=== PATIENT | female | born 1995 | race Caucasian/White ===

== ENCOUNTER 2017-06-05 18:14 | Emergency (ER) | payer BC ==
[2017-06-05] MEDS ORDERED: Ketorolac 30 MG/ML SDV IVPUSH ONE (18:48)
[2017-06-05] MEDS ORDERED: Lactated Ringers 1,000 ML IV ONE (18:48)
--- NOTE | 2017-06-05 19:34 | EDM.PDOC ---
ED HPI GENERAL MEDICAL PROBLEM - General Chief Complaint: Fever Stated Complaint: FEVER/BODY ACHES Time Seen by Provider: 06/05/17 18:34 Source of Information: Reports: Patient History Limitations: Reports: No Limitations - History of Present Illness INITIAL COMMENTS - FREE TEXT/NARRATIVE: 22-year-old female presents for evaluation and treatment of right shoulder pain , fevers, chills and malaise. Patient reports 2 days ago she had a pneumonia shot in her right shoulder and a tetanus shot in the left shoulder. She states that she is now developed severe pain in the right arm and is barely move her right arm. She states that initially she felt tired and did not feel well. Reports today she had a temperature of 102.8 at home. She took 1 g of Tylenol at 7am and at noon. She decided to go to the walk-in where her temperature was 101.5. She was sent over to us for further management. Patient reports when the shoulder is at rest the pain as a 2 out of 10. Reports that movement makes the pain significantly worse. Patient states that she receives the pneumonia vaccine at urging of her PCP and she frequently becomes sick. 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 Patient reports symptoms of severe right shoulder pain, fatigue, malaise, fevers , chills, back pain, neck pain, bilateral thigh pain, decreased appetite, a tickle in the back of her throat and hard time breathing. Patient denies any chest pain, nausea, vomiting, abdominal pain or diarrhea. She denies any recent travel. Immunizations are up-to-date. Previous abdominal surgeries including cholecystectomy. 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 Right Shoulder Pain Score (Numeric/FACES): 7 - Related Data Allergies Allergy/AdvReac Type Severity Reaction Status Date / Time azithromycin Allergy Nausea Verified 06/05/17 19:00 [From Zithromax Z-Eleazar] latex Allergy Pain Verified 06/05/17 19:00 Past Medical History Respiratory History: Reports: Asthma Gastrointestinal History: Reports: Irritable Bowel Syndrome BAND EDGER History: Reports: Other (See Below) Other OB/BYN History: ruptured ovarian cyst Musculoskeletal History: Reports: Fracture Psychiatric History: Reports: Anxiety - Past Surgical History HEENT Surgical History: Reports: Adenoidectomy, Myringotomy w Tube(s), Tonsillectomy GI Surgical History: Reports: Cholecystectomy Social & Family History - Family History Family Medical History: Noncontributory - Tobacco Use Smoking Status *Q: Never Smoker - Recreational Drug Use Recreational Drug Use: No ED ROS GENERAL - Review of Systems Review Of Systems: See Below Constitutional: Reports: Fever, Chills, Malaise, Decreased Appetite HEENT: Reports: Throat Pain (reports a "tickle" in the back of her throat) Respiratory: Reports: Shortness of Breath, Cough Cardiovascular: Denies: Chest Pain GI/Abdominal: Denies: Abdominal Pain, Nausea, Vomiting : Denies: Dysuria Musculoskeletal: Reports: Neck Pain, Arm Pain (right shuolder causing the worst pain), Back Pain, Leg Pain (reports pain to the bilteral thighs) Neurological: Reports: Headache ED EXAM, GENERAL - Physical Exam Exam: See Below Exam Limited By: No Limitations General Appearance: Alert, WD/WN, No Apparent Distress Ears: Normal External Exam, Normal Canal, Hearing Grossly Normal Nose: Normal Inspection Throat/Mouth: Normal Inspection, Normal Lips, Normal Voice, No Airway Compromise , Other (tonsils absent) Neck: Normal Inspection Respiratory/Chest: No Respiratory Distress, Lungs Clear, Normal Breath Sounds Cardiovascular: No Murmur, Tachycardia GI/Abdominal: Normal Bowel Sounds, Soft, Non-Tender Extremities: Limited Range of Motion (right shoulder pain with ROM), Other ( right proximal arm very tender to palpation and swollen; no increased warmth or erythema). No: Increased Warmth, Redness Neurological: Alert, Oriented, Normal Cognition Psychiatric: Normal Affect, Normal Mood Skin Exam: Diaphoretic, Erythema (cheeks are flushed), Increased Warmth Course - Vital Signs Last Recorded V/S: Last Vital Signs Temp 36.8 C 06/06/17 00:10 Pulse 122 H 06/06/17 00:10 Resp 18 06/06/17 00:10 BP 121/58 L 06/06/17 00:10 Pulse Ox 100 06/06/17 00:10 - Orders/Labs/Meds Orders: Active Orders 24 hr Category Date Time Status CULTURE BLOOD [BC] Stat Lab 06/05/17 19:20 Results CULTURE BLOOD [BC] Stat Lab 06/05/17 19:30 Results CULTURE STREP A CONFIRMATION [] Stat Lab 06/05/17 19:10 Results STREP SCRN A RAPID W CULT CONF [] Stat Lab 06/05/17 19:10 Results Labs: Laboratory Tests 06/05/17 06/05/17 06/05/17 Range/Units 18:48 19:00 19:00 WBC 17.52 H (3.98-10.04) K/mm3 RBC 4.26 (3.98-5.22) M/mm3 Hgb 12.7 (11.2-15.7) gm/L Hct 37.3 (34.1-44.9) % MCV 87.6 (79.4-94.8) fl MCH 29.8 (25.6-32.2) pg MCHC 34.0 (32.2-35.5) g/dl RDW Std Deviation 39.7 (36.4-46.3) fL Plt Count 189 (182-369) K/mm3 MPV 10.4 (9.4-12.3) fl Neutrophils % (Manual) 80 H (40-60) % Band Neutrophils % 0 (0-10) % Lymphocytes % (Manual) 13 L (20-40) % Atypical Lymphs % 0 % Monocytes % (Manual) 7 (2-10) % Eosinophils % (Manual) 0 L (0.7-5.8) % Basophils % (Manual) 0 L (0.1-1.2) Toxic Granulation 2+ moderate Platelet Estimate Adequate Plt Morphology Comment Normal RBC Morph Comment Normal Sodium 135 L (136-145) mEq/L Potassium 3.5 (3.5-5.1) mEq/L Chloride 98 (98-107) mEq/L Carbon Dioxide 23 (21-32) mEq/L Anion Gap 17.5 H (5-15) BUN 10 (7-18) mg/dL Creatinine 0.8 (0.55-1.02) mg/dL Est Cr Clr Drug Dosing 93.64 mL/min Estimated GFR (MDRD) > 60 (>60) mL/min BUN/Creatinine Ratio 12.5 L (14-18) Glucose 91 (74-106) mg/dL Lactic Acid (0.4-2.0) mmol/L Calcium 8.8 (8.5-10.1) mg/dL Total Bilirubin 1.2 H (0.2-1.0) mg/dL GGT (5-55) U/L AST 68 H (15-37) U/L ALT 85 H (14-59) U/L Alkaline Phosphatase 104 (46-116) U/L Creatine Kinase 57 (26-192) U/L C-Reactive Protein 4.5 H* (<1.0) mg/dL Total Protein 7.7 (6.4-8.2) g/dl Albumin 3.6 (3.4-5.0) g/dl Globulin 4.1 gm/dL Albumin/Globulin Ratio 0.9 L (1-2) Lipase (73-393) U/L Urine Color Yellow (Yellow) Urine Appearance Clear (Clear) Urine pH 6.0 (5.0-8.0) Ur Specific Homer 1.010 (1.005-1.030) Urine Protein Negative (Negative) Urine Glucose (UA) Negative (Negative) Urine Ketones 2+ H (Negative) Urine Occult Blood Trace-intact H (Negative) Urine Nitrite Negative (Negative) Urine Bilirubin Negative (Negative) Urine Urobilinogen 0.2 (0.2-1.0) Ur Leukocyte Esterase Negative (Negative) Urine RBC 0-5 (0-5) /hpf Urine WBC 0-5 (0-5) /hpf Ur Epithelial Cells 0-5 (0-5) /hpf Urine Bacteria Few (FEW) /hpf Urine Mucus Not seen (FEW) /hpf Urine HCG, Qual (NEGATIVE) Monoscreen (NEGATIVE) 06/05/17 06/05/17 06/05/17 Range/Units 19:00 19:00 19:32 WBC (3.98-10.04) K/mm3 RBC (3.98-5.22) M/mm3 Hgb (11.2-15.7) gm/L Hct (34.1-44.9) % MCV (79.4-94.8) fl MCH (25.6-32.2) pg MCHC (32.2-35.5) g/dl RDW Std Deviation (36.4-46.3) fL Plt Count (182-369) K/mm3 MPV (9.4-12.3) fl Neutrophils % (Manual) (40-60) % Band Neutrophils % (0-10) % Lymphocytes % (Manual) (20-40) % Atypical Lymphs % % Monocytes % (Manual) (2-10) % Eosinophils % (Manual) (0.7-5.8) % Basophils % (Manual) (0.1-1.2) Toxic Granulation Platelet Estimate Plt Morphology Comment RBC Morph Comment Sodium (136-145) mEq/L Potassium (3.5-5.1) mEq/L Chloride (98-107) mEq/L Carbon Dioxide (21-32) mEq/L Anion Gap (5-15) BUN (7-18) mg/dL Creatinine (0.55-1.02) mg/dL Est Cr Clr Drug Dosing mL/min Estimated GFR (MDRD) (>60) mL/min BUN/Creatinine Ratio (14-18) Glucose (74-106) mg/dL Lactic Acid 0.7 (0.4-2.0) mmol/L Calcium (8.5-10.1) mg/dL Total Bilirubin (0.2-1.0) mg/dL GGT (5-55) U/L AST (15-37) U/L ALT (14-59) U/L Alkaline Phosphatase (46-116) U/L Creatine Kinase (26-192) U/L C-Reactive Protein (<1.0) mg/dL Total Protein (6.4-8.2) g/dl Albumin (3.4-5.0) g/dl Globulin gm/dL Albumin/Globulin Ratio (1-2) Lipase (73-393) U/L Urine Color (Yellow) Urine Appearance (Clear) Urine pH (5.0-8.0) Ur Specific Homer (1.005-1.030) Urine Protein (Negative) Urine Glucose (UA) (Negative) Urine Ketones (Negative) Urine Occult Blood (Negative) Urine Nitrite (Negative) Urine Bilirubin (Negative) Urine Urobilinogen (0.2-1.0) Ur Leukocyte Esterase (Negative) Urine RBC (0-5) /hpf Urine WBC (0-5) /hpf Ur Epithelial Cells (0-5) /hpf Urine Bacteria (FEW) /hpf Urine Mucus (FEW) /hpf Urine HCG, Qual Negative (NEGATIVE) Monoscreen Negative (NEGATIVE) 06/05/17 Range/Units 20:15 WBC (3.98-10.04) K/mm3 RBC (3.98-5.22) M/mm3 Hgb (11.2-15.7) gm/L Hct (34.1-44.9) % MCV (79.4-94.8) fl MCH (25.6-32.2) pg MCHC (32.2-35.5) g/dl RDW Std Deviation (36.4-46.3) fL Plt Count (182-369) K/mm3 MPV (9.4-12.3) fl Neutrophils % (Manual) (40-60) % Band Neutrophils % (0-10) % Lymphocytes % (Manual) (20-40) % Atypical Lymphs % % Monocytes % (Manual) (2-10) % Eosinophils % (Manual) (0.7-5.8) % Basophils % (Manual) (0.1-1.2) Toxic Granulation Platelet Estimate Plt Morphology Comment RBC Morph Comment Sodium (136-145) mEq/L Potassium (3.5-5.1) mEq/L Chloride (98-107) mEq/L Carbon Dioxide (21-32) mEq/L Anion Gap (5-15) BUN (7-18) mg/dL Creatinine (0.55-1.02) mg/dL Est Cr Clr Drug Dosing mL/min Estimated GFR (MDRD) (>60) mL/min BUN/Creatinine Ratio (14-18) Glucose (74-106) mg/dL Lactic Acid (0.4-2.0) mmol/L Calcium (8.5-10.1) mg/dL Total Bilirubin (0.2-1.0) mg/dL GGT 320 H (5-55) U/L AST (15-37) U/L ALT (14-59) U/L Alkaline Phosphatase (46-116) U/L Creatine Kinase (26-192) U/L C-Reactive Protein (<1.0) mg/dL Total Protein (6.4-8.2) g/dl Albumin (3.4-5.0) g/dl Globulin gm/dL Albumin/Globulin Ratio (1-2) Lipase 87 (73-393) U/L Urine Color (Yellow) Urine Appearance (Clear) Urine pH (5.0-8.0) Ur Specific Homer (1.005-1.030) Urine Protein (Negative) Urine Glucose (UA) (Negative) Urine Ketones (Negative) Urine Occult Blood (Negative) Urine Nitrite (Negative) Urine Bilirubin (Negative) Urine Urobilinogen (0.2-1.0) Ur Leukocyte Esterase (Negative) Urine RBC (0-5) /hpf Urine WBC (0-5) /hpf Ur Epithelial Cells (0-5) /hpf Urine Bacteria (FEW) /hpf Urine Mucus (FEW) /hpf Urine HCG, Qual (NEGATIVE) Monoscreen (NEGATIVE) Meds: Medications Discontinued Medications Generic Name Dose Route Start Last Admin Trade Name Freq PRN Reason Stop Dose Admin Diatrizoate Meglum/Diatrizoate Sod 90 ml 06/05/17 22:36 06/05/17 22:59 Gastrografin 37% PO 06/05/17 22:37 90 ml ONETIME ONE Administration Hydromorphone HCl 0.5 mg 06/05/17 21:17 06/05/17 21:30 Dilaudid IVPUSH 06/05/17 21:18 0.5 mg ONETIME ONE Administration Lactated Ringer's 1,000 mls @ 999 mls/hr 06/05/17 18:48 06/05/17 19:40 Ringers, Lactated IV 06/05/17 19:48 999 mls/hr .BOLUS ONE Administration Lactated Ringer's 500 mls @ 999 mls/hr 06/05/17 21:25 06/05/17 21:35 Ringers, Lactated IV 06/05/17 21:55 999 mls/hr .BOLUS ONE Administration Iopamidol 125 ml 06/05/17 22:36 06/05/17 23:00 Isovue-300 (61%) IVPUSH 06/05/17 22:37 125 ml ONETIME ONE Administration Ketorolac Tromethamine 30 mg 06/05/17 18:48 06/05/17 19:38 Toradol IVPUSH 06/05/17 18:49 30 mg ONETIME ONE Administration Ondansetron HCl 4 mg 06/05/17 22:34 06/05/17 22:58 Zofran IVPUSH 06/05/17 22:35 Not Given ONETIME ONE Sodium Chloride 10 ml 06/05/17 18:48 06/05/17 23:00 Saline Flush FLUSH 10 ml ASDIRECTED PRN Administration Keep Vein Open - Radiology Interpretation Free Text/Narrative:: CT of the abdomen and pelvis with IV and oral contrast impression per [facility] 1. No acute findings. chest xray shows no acute intrathoracic process. - Re-Assessments/Exams Free Text/Narrative Re-Assessment/Exam: 06/05/17 21:15 Labs returned. rapid strep and flu are negative. blood cultures are pending. WBC is elevated as well as CRP. Possibly immune response to the vaccine or a viral illness. Unsure at this point why her liver enzymes are elevated. Monospot is negative. Lipase is within normal limits. Previously had a cholecystectomy. Considered meningitis. No vomiting. Normal demeanor. Reports a headache but states this is minor and the shoulder pain is much worse. Reports neck pain but this seems to be related to the right shoulder pain and is minor compared to the shoulder pain. Considered PE given the tachycardia and reported shortness of breath. Wells score is 1.5 putting her in the low risk group. She has no chest pain. Will obtain a CT of the abdomen and pelvis to further evaluate elevated liver enzymes and bilirubin. 06/05/17 23:[address] results with the patient mother. Discussed disposition. I feel this is either an odd reaction to the vaccines or she has a viral illness and the shoulder pain is from the vaccine. We discussed admission for monitoring, pain control and fluids. Possibly additional testing. They live in [facility] [place] and feel comfortable going home with close follow-up. I will give her medication for the pain and nausea as she frequently gets nauseated with pain medication. Patient's heart rate has improved with 1.5 L LR to the 120s. Pain improved with the toradol and Dilaudid but still present. Decided to discharge home with close follow-up with PCP or Saturday. Return to ER immediately if symptoms change or worsen. Departure - Departure Time of Disposition: 23:57 Disposition: Home, Self-Care 01 Condition: Fair Clinical Impression: Adverse reaction to vaccine - Discharge Information Instructions: VIS, Pneumococcal Conjugate - CDC, VIS, Pneumococcal Polysaccharide - CDC Referrals: Gordon Mcclellan MD [Primary Care Provider] - Forms: ED Department Discharge, ED Return to Work/School Form Additional Instructions: Prescription for Zofran 1 tab 3 times a day as needed for nausea and vomiting # 10 Prescription for Scurry 1/2-1 tab every 4-6 hours as needed for pain #10. Prescriptions given through [facility]. You were given medication the ER that can affect your ability to drive and operate machinery. Do not drive or operate machinery within 12 hours of taking prescription narcotic pain medication. Take the Zofran 1 tab sublingual every 8 hours as needed for nausea. Take [id number] ibuprofen 600-800 mg every 6 hours or fever and pain relief. may also take Tylenol every 4-6 hours as needed for pain and fever relief. For pain not relieved by ibuprofen take Scurry 1/2-1 tab every 4-6 hours as needed for pain. The careful not to take too much Tylenol. Do not take more than 4 g of Tylenol from also horses and 1 day. Scurry can be habit-forming, recommend you take as few of these as needed to control your pain. Do not drive or operate machinery within 12 hours of taking Scurry. Follow-up with your primary care provider or Saturday this week. Please that them know that you were seen in the ER and we recommended follow-up within the next day or 2. Rest. make sure you are drinking plenty of fluids. Shoulder sling as needed for pain relief. Please return to the ER immediately if your symptoms change or worsen. - My Orders Last 24 Hours: My Active Orders 06/05/17 19:10 CULTURE STREP A CONFIRMATION [RM] Stat STREP SCRN A RAPID W CULT CONF [] Stat 06/05/17 19:20 CULTURE BLOOD [BC] Stat 06/05/17 19:30 CULTURE BLOOD [BC] Stat - Assessment/Plan Last 24 Hours: My Active Orders 06/05/17 19:10 CULTURE STREP A CONFIRMATION [RM] Stat STREP SCRN A RAPID W CULT CONF [] Stat 06/05/17 19:20 CULTURE BLOOD [BC] Stat 06/05/17 19:30 CULTURE BLOOD [BC] Stat
[2017-06-05] MEDS: Sodium Chloride 0.9% 10 ML Syringe FLUSH PRN ×2 (19:53→23:00)
[2017-06-05] MEDS ORDERED: HYDROmorphone 0.5 MG/0.5 ML Syringe IVPUSH ONE (21:17)
[2017-06-05] MEDS ORDERED: Lactated Ringers 500 ML IV ONE (21:25)
[2017-06-05] MEDS ORDERED: Ondansetron 4 MG/2 ML SDV IVPUSH ONE (22:34)
[2017-06-05] MEDS ORDERED: Iopamidol 612 MG/ML 150 ML Bottle IVPUSH ONE (22:36)
[2017-06-05] MEDS ORDERED: Diatrizoate Meglumine/Diatrizoate Sodium 37% 120 ML Bottle PO ONE (22:36)
[2017-06-06 00:22] VITALS: BP 121/58
--- NOTE | 2017-06-06 09:42 | CT ---
CT abdomen and pelvis Technique: Multiple axial sections were obtained from above the dome of the diaphragm inferiorly through the pubic symphysis. Intravenous and oral contrast has been given. Delayed images were also obtained through the abdomen and pelvis. Comparison: No previous CT exam. Findings: Visualized lung bases show nothing acute. Liver shows mild fatty infiltration. No focal abnormality is seen within the liver. Surgical clips are seen from prior cholecystectomy. Spleen appears within normal limits. Adrenal glands show no nodule. Kidneys show symmetric contrast enhancement without hydronephrosis or mass. Delayed images show contrast excretion into both ureters which are seen throughout their entire course with contrast noted within the bladder. Pancreas appears within normal limits. Aorta shows no aneurysmal dilatation. No retroperitoneal adenopathy or mesenteric abnormalities are seen. Appendix is seen and appears normal. No pelvic mass or adenopathy is seen. No bowel dilatation is seen. No free fluid or inflammatory change is seen. Bone window settings were reviewed which appear within normal limits for the patient's age. Impression: 1. Incidental fatty infiltration within the liver. Previous cholecystectomy. 2. Nothing acute is identified on CT study of the abdomen and pelvis. Diagnostic code #3 Agree with preliminary report issued by [facility] ([facility] preliminary report dictated on 06/06/17, 12:16 AM Central Time)
--- NOTE | 2017-06-06 09:42 | CR ---
Chest: Two views of the chest were obtained. Comparison: No prior chest x-ray. Heart size and mediastinum are within normal limits. Lungs are clear. Bony structures are grossly intact. Single surgical clip is noted within the upper right abdomen. Impression: 1. Nothing acute is seen on two-view chest x-ray. Diagnostic code #1
== END 2017-06-06 00:10 | disposition home or self-care (01) ==
LOC: JD.ED 18:14
DX: R50.9 Fever, unspecified (principal); R53.81 Other malaise; M25.511 Pain in right shoulder; T50.A95A Adverse effect of other bacterial vaccines, initial encounter; J45.909 Unspecified asthma, uncomplicated; Z96.22 Myringotomy tube(s) status; Z91.040 Latex allergy status; Z88.1 Allergy status to other antibiotic agents; Z90.49 Acquired absence of other specified parts of digestive tract; Z98.890 Other specified postprocedural states
CPT/HCPCS: 36415; 71020; 74177; 80053; 81001; 81025; 82550; 82977; 83605; 83690; 85025; 86140; 86308; 87040; 87081; 87430; 87804; 96361; 96374; 96375; 99285; J1170; J1885; J7050; J7120; Q9963; Q9967; 99284

== ENCOUNTER 2018-05-26 16:15 | Emergency (ER) | payer BC ==
[2018-05-26 16:27] VITALS: BP 109/70
[2018-05-26] MEDS ORDERED: Sodium Chloride 0.9% 10 ML Syringe FLUSH PRN (16:56)
[2018-05-26] MEDS ORDERED: Sodium Chloride 0.9% 1,000 ML IV SCH (17:00)
--- NOTE | 2018-05-26 17:01 | EDM.PDOC ---
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 She states she's approximately 6 weeks . Last menstrual cycle was April 20, 2018. She's taken 3 home tests and all were positive. States as of this morning developed some lower abdominal cramping with dark brown spotting with a few clots present. Described as scant most notably with wiping. She richards not seen her INTELLIGENCE SENIOR SERGEANT doc since being . She is currently on vitamins. She is alittle anxious since she's not able to take her anxiety medications. More anxious due to the and also recently her grandma . She has no prior hx. Has a history of irritable bowel syndrome and had 2 episodes of diarrhea today. Cramping is unlike normal IBS flareups. She is concerned she is having a miscarriage. She does not know her blood type. Denies any dysuria, blood in her stool, fever, dizziness, or any additional complaints. lower abdomen Pain Score (Numeric/FACES): 3 - Related Data Allergies Allergy/AdvReac Type Severity Reaction Status Date / Time azithromycin Allergy Nausea Verified 05/26/18 16:27 [From Zithromax Z-Eleazar] latex Allergy Pain Verified 05/26/18 16:27 Home Meds: Home Meds Docosahexanoic Acid [ Dha] 200 mg PO DAILY 05/26/18 [History] Past Medical History Respiratory History: Reports: Asthma Gastrointestinal History: Reports: Irritable Bowel Syndrome INTELLIGENCE SENIOR SERGEANT History: Reports: Other (See Below) Other INTELLIGENCE SENIOR SERGEANT History: ruptured ovarian cyst Musculoskeletal History: Reports: Fracture Psychiatric History: Reports: Anxiety - Past Surgical History HEENT Surgical History: Reports: Adenoidectomy, Myringotomy w Tube(s), Tonsillectomy GI Surgical History: Reports: Cholecystectomy Social & Family History - Family History Family Medical History: Noncontributory - Tobacco Use Smoking Status *Q: Never Smoker Second Hand Smoke Exposure: No - Caffeine Use Caffeine Use: Reports: None - Recreational Drug Use Recreational Drug Use: No ED ROS GENERAL - Review of Systems Review Of Systems: ROS reveals no pertinent complaints other than HPI. ED EXAM, GI/ABD - Physical Exam Exam: See Below Exam Limited By: No Limitations General Appearance: Alert, WD/WN, Anxious Ears: Hearing Grossly Normal Nose: Normal Inspection Throat/Mouth: Normal Voice, No Airway Compromise Head: Atraumatic, Normocephalic Neck: Normal Inspection, Supple Respiratory/Chest: No Respiratory Distress, Lungs Clear, Normal Breath Sounds Cardiovascular: Normal Peripheral Pulses, Regular Rate, Rhythm, No Murmur GI/Abdominal Exam: Soft, No Organomegaly, No Distention, Tender (mild tenderness to the adnexal region. L&R. ), Abnormal Bowel Sounds (hyperactive) Back Exam: Normal Inspection Neurological: Alert, Oriented, CN II-XII Intact, Normal Cognition, No Motor/ Sensory Deficits Psychiatric: Normal Affect, Anxious Skin Exam: Warm, Dry, Intact, Normal Color Course - Vital Signs Last Recorded V/S: Last Vital Signs Temp 98.1 F 05/26/18 16:24 Pulse 94 05/26/18 16:24 Resp 18 05/26/18 16:24 BP 109/70 05/26/18 16:24 Pulse Ox 100 05/26/18 16:24 - Orders/Labs/Meds Orders: Active Orders 24 hr Category Date Time Status Peripheral IV Care [RC] . DIRECTED Care 05/26/18 16:56 Active OB Transvaginal [US] Stat Exams 05/26/18 16:56 Taken ABO/RH TYPE [BBK] Stat Lab 05/26/18 17:00 Results PATIENT RETYPE [BBK] Stat Lab 05/26/18 17:00 Results Peripheral IV Insertion Adult [OM.PC] Routine Oth 05/26/18 16:56 Ordered Labs: Laboratory Tests 05/26/18 05/26/18 05/26/18 Range/Units 17:00 17:00 17:00 WBC 8.93 (3.98-10.04) K/mm3 RBC 4.75 (3.98-5.22) M/mm3 Hgb 14.1 (11.2-15.7) gm/L Hct 42.7 (34.1-44.9) % MCV 89.9 (79.4-94.8) fl MCH 29.7 (25.6-32.2) pg MCHC 33.0 (32.2-35.5) g/dl RDW Std Deviation 41.8 (36.4-46.3) fL Plt Count 263 (182-369) K/mm3 MPV 9.8 (9.4-12.3) fl Neutrophils % (Manual) 57 (40-60) % Band Neutrophils % 0 (0-10) % Lymphocytes % (Manual) 31 (20-40) % Atypical Lymphs % 0 % Monocytes % (Manual) 11 H (2-10) % Eosinophils % (Manual) 1 (0.7-5.8) % Basophils % (Manual) 0 L (0.1-1.2) Platelet Estimate Adequate RBC Morph Comment Normal Sodium 139 (136-145) mEq/L Potassium 3.5 (3.5-5.1) mEq/L Chloride 104 (98-107) mEq/L Carbon Dioxide 25 (21-32) mEq/L Anion Gap 13.5 (5-15) BUN 13 (7-18) mg/dL Creatinine 0.9 (0.55-1.02) mg/dL Est Cr Clr Drug Dosing 82.51 mL/min Estimated GFR (MDRD) > 60 (>60) mL/min BUN/Creatinine Ratio 14.4 (14-18) Glucose 83 (74-106) mg/dL Calcium 8.9 (8.5-10.1) mg/dL Total Bilirubin 0.7 (0.2-1.0) mg/dL AST 91 H (15-37) U/L ALT 365 H (14-59) U/L Alkaline Phosphatase 161 H (46-116) U/L Total Protein 7.8 (6.4-8.2) g/dl Albumin 4.0 (3.4-5.0) g/dl Globulin 3.8 gm/dL Albumin/Globulin Ratio 1.1 (1-2) HCG, Quant 15.0 mIU/mL Urine Color (Yellow) Urine Appearance (Clear) Urine pH (5.0-8.0) Ur Specific [place] (1.005-1.030) Urine Protein (Negative) Urine Glucose (UA) (Negative) Urine Ketones (Negative) Urine Occult Blood (Negative) Urine Nitrite (Negative) Urine Bilirubin (Negative) Urine Urobilinogen (0.2-1.0) Ur Leukocyte Esterase (Negative) Urine RBC (0-5) /hpf Urine WBC (0-5) /hpf Ur Epithelial Cells (0-5) /hpf Urine Bacteria (FEW) /hpf Urine Mucus (FEW) /hpf Blood Type A POSITIVE 05/26/18 Range/Units 17:00 WBC (3.98-10.04) K/mm3 RBC (3.98-5.22) M/mm3 Hgb (11.2-15.7) gm/L Hct (34.1-44.9) % MCV (79.4-94.8) fl MCH (25.6-32.2) pg MCHC (32.2-35.5) g/dl RDW Std Deviation (36.4-46.3) fL Plt Count (182-369) K/mm3 MPV (9.4-12.3) fl Neutrophils % (Manual) (40-60) % Band Neutrophils % (0-10) % Lymphocytes % (Manual) (20-40) % Atypical Lymphs % % Monocytes % (Manual) (2-10) % Eosinophils % (Manual) (0.7-5.8) % Basophils % (Manual) (0.1-1.2) Platelet Estimate RBC Morph Comment Sodium (136-145) mEq/L Potassium (3.5-5.1) mEq/L Chloride (98-107) mEq/L Carbon Dioxide (21-32) mEq/L Anion Gap (5-15) BUN (7-18) mg/dL Creatinine (0.55-1.02) mg/dL Est Cr Clr Drug Dosing mL/min Estimated GFR (MDRD) (>60) mL/min BUN/Creatinine Ratio (14-18) Glucose (74-106) mg/dL Calcium (8.5-10.1) mg/dL Total Bilirubin (0.2-1.0) mg/dL AST (15-37) U/L ALT (14-59) U/L Alkaline Phosphatase (46-116) U/L Total Protein (6.4-8.2) g/dl Albumin (3.4-5.0) g/dl Globulin gm/dL Albumin/Globulin Ratio (1-2) HCG, Quant mIU/mL Urine Color Yellow (Yellow) Urine Appearance Clear (Clear) Urine pH 5.5 (5.0-8.0) Ur Specific [place] > or = 1.030 (1.005-1.030) Urine Protein Trace H (Negative) Urine Glucose (UA) Negative (Negative) Urine Ketones Negative (Negative) Urine Occult Blood Trace-intact H (Negative) Urine Nitrite Negative (Negative) Urine Bilirubin Negative (Negative) Urine Urobilinogen 0.2 (0.2-1.0) Ur Leukocyte Esterase Negative (Negative) Urine RBC 0-5 (0-5) /hpf Urine WBC Not seen (0-5) /hpf Ur Epithelial Cells 0-5 (0-5) /hpf Urine Bacteria Rare (FEW) /hpf Urine Mucus Not seen (FEW) /hpf Blood Type Meds: Medications Discontinued Medications Generic Name Dose Route Start Last Admin Trade Name Freq PRN Reason Stop Dose Admin Sodium Chloride 1,000 mls @ 250 mls/hr 05/26/18 17:00 05/26/18 17:15 Normal Saline IV 250 mls/hr ASDIRECTED CELIA Administration Sodium Chloride 10 ml 05/26/18 16:56 05/26/18 17:16 Saline Flush FLUSH 10 ml ASDIRECTED PRN Administration Keep Vein Open - Re-Assessments/Exams Free Text/Narrative Re-Assessment/Exam: IV established with normal saline 250 mL per hour. Initial labs and studies include: CBC, chem 14, hCG, ABO/Rh type, UA, and OB transvaginal. CBC was essentially normal. Chemistry panel was essentially normal as well. Alk phosphatase is mildly elevated 161. ALT elevated at 365. AST 91. HCG quantitative 15. UA trace protein and occult blood. Blood Type A+ Ultrasound impression: Intrauterine gestation 4 weeks 4 days gestational age. Estimated date of delivery by ultrasound as January 29, 2019. Discuss results of labs and ultrasound with the patient. Informed her of the signs and symptoms to return back to the ED. She had all questions asked and did not have any further questions. She agreed with plan. Will have patient refrain from any strenuous activities and/or sexual intercourse until evaluated by INTELLIGENCE SENIOR SERGEANT specialist in the next week. Patient has had scant bleeding during ER visit. Departure - Departure Time of Disposition: 19:28 Disposition: Home, Self-Care 01 Condition: Good Clinical Impression: First trimester bleeding, Elevated LFTs - Discharge Information Instructions: Vaginal Bleeding During , First Trimester Referrals: Nevaeh Garrison MD [Primary Care Provider] - Forms: ED Department Discharge Additional Instructions: Make an appointment to see INTELLIGENCE SENIOR SERGEANT specialist within the next week for further evaluation. Refrain from any strenuous activities and/or sexual intercourse. Return to the ED if he developed any new or worsening symptoms as discussed. - My Orders Last 24 Hours: My Active Orders 05/26/18 16:56 Peripheral IV Care [RC] . DIRECTED OB Transvaginal [US] Stat Peripheral IV Insertion Adult [OM.PC] Routine 05/26/18 17:00 ABO/RH TYPE [BBK] Stat PATIENT RETYPE [BBK] Stat - Assessment/Plan Last 24 Hours: My Active Orders 05/26/18 16:56 Peripheral IV Care [RC] . DIRECTED OB Transvaginal [US] Stat Peripheral IV Insertion Adult [OM.PC] Routine 05/26/18 17:00 ABO/RH TYPE [BBK] Stat PATIENT RETYPE [BBK] Stat
--- NOTE | 2018-06-05 09:12 | US ---
Obstetrical ultrasound: Multiple real-time images were obtained transvaginally. Comparison: No prior study for current . Very minimal cystic area seen within the endometrial cavity. Endometrial thickness is 6.6 mm. Incidental nabothian cysts are present. Right and left ovaries are seen which show follicles. No larger cyst or solid abnormality is seen. No adnexal abnormalities are seen. Impression: 1. Minimal cystic area within the endometrial cavity. This could represent very early versus a pseudo-gestational sac. Recommend follow-up study in 11 days to further evaluate. 2. No additional findings are seen within the pelvis. Diagnostic code #3
== END 2018-05-26 19:35 | disposition home or self-care (01) ==
LOC: JD.ED 16:15
DX: O20.9 Hemorrhage in early pregnancy, unspecified (principal); O99.511 Diseases of the respiratory system complicating pregnancy, first trimester; J45.909 Unspecified asthma, uncomplicated; Z88.1 Allergy status to other antibiotic agents; Z91.040 Latex allergy status; Z3A.01 Less than 8 weeks gestation of pregnancy
CPT/HCPCS: 36415; 76817; 80053; 81001; 84702; 85007; 85027; 86900; 86901; 96360; 96361; 99284; J7040; J7050; 99283

== ENCOUNTER 2021-05-20 06:56 | Inpatient (IN) | payer BC ==
[2021-05-20] MEDS ORDERED: Nalbuphine 10 MG/1 ML Vial IVPUSH PRN (07:27)
[2021-05-20] MEDS ORDERED: Sodium Chloride 0.9% 10 ML Syringe FLUSH PRN (07:27)
[2021-05-20] MEDS ORDERED: Oxytocin/Lactated Ringers 10 UNIT/1,000 ML BAG IV SCH ×2 (07:30)
--- NOTE | 2021-05-20 08:46 | PCM.LDHP ---
L&D History of Present Illness - General Date of Service: 05/20/21 Admit Problem/Dx: Patient Status Order with Admit Dx/Problem 05/20/21 07:28 Patient Status [ADT] Routine Admission Diagnosis/Problem Admission Diagnosis/Problem Source of Information: Patient History Limitations: Reports: No Limitations - History of Present Illness Introduction:: Patient is a 25 y/o at 39 1/7 wks who presented for IOL. Doing well today. No significant changes in contractions - Related Data Allergies/Adverse Reactions: Allergies Allergy/AdvReac Type Severity Reaction Status Date / Time latex Allergy Rash Verified 04/14/21 10:22 azithromycin [From Zithromax] AdvReac Vomiting Verified 04/14/21 10:22 pneumococcal vaccine AdvReac Pain Verified 04/14/21 10:22 Home Medications: Home Meds Albuterol Sulfate [Albuterol Sulfate Hfa] 18 gm IH Q4HR 06/06/19 [History] Doxylamine Succinate [Unisom] 25 mg PO DAILY 06/06/19 [History] Famotidine [Pepcid] 10 mg PO BID 06/06/19 [History] Ondansetron [Zofran] 8 mg PO Q8H PRN 06/06/19 [History] No122/Iron/Folic Acid [ Multi Tablet] 1 each PO DAILY 06/06/19 [History] Sertraline HCl [Zoloft] 100 mg PO DAILY 06/06/19 [History] Past Medical History Respiratory History: Reports: Asthma Gastrointestinal History: Reports: Irritable Bowel Syndrome 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: , 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 , Other (See Below) : 3 Para: 1 Musculoskeletal History: Reports: Fracture (Shoulder) Psychiatric History: Reports: Anxiety - Infectious Disease History Infectious Disease History: Reports: Mononucleosis (11 years old) - Past Surgical History HEENT Surgical History: Reports: Adenoidectomy, Myringotomy w Tube(s), Tonsillectomy GI Surgical History: Reports: Cholecystectomy Social & Family History - Family History Family Medical History: No Pertinent Family History Oncologic: Reports: Thyroid - Tobacco Use Tobacco Use Status *Q: Never Tobacco User - Caffeine Use Caffeine Use: Reports: Coffee (Occasionally) - Alcohol Use Alcohol Use History: No - Recreational Drug Use Recreational Drug Use: No - Living Situation & Occupation Living situation: Reports: Occupation: Employed ([employer]) H&P Review of Systems - Review of Systems: Review Of Systems: See Below General: Reports: No Symptoms Pulmonary: Reports: No Symptoms Cardiovascular: Reports: No Symptoms Gastrointestinal: Reports: No Symptoms Genitourinary: Reports: No Symptoms Musculoskeletal: Reports: No Symptoms Psychiatric: Reports: No Symptoms Neurological: Reports: No Symptoms L&D Exam - Exam Exam: See Below - Vital Signs Vital Signs: Last Vital Signs Temp 36.1 C 05/20/21 07:26 Pulse 91 05/20/21 07:26 Resp BP 107/70 05/20/21 07:26 Pulse Ox 99 05/20/21 07:26 Weight: 81.374 kg - OB Specific Contraction Intensity: Irritability Movement: Active Heart Tones: Present Heart Tones per Min: 130 Heart Rate (FHR) Variability: Moderate (6-25 bpm) Presentation: Vertex - Garibay Score Garibay Score Cervix Position: Midposition Garibay Score Consistency: Soft Garibay Score Effacement: >80% Garibay Score Dilation: 3-4 cm Garibay Score Infant's Station: -2 Garibay Score Total: 9 - Exam General: Alert, Oriented, Cooperative Lungs: Clear to Auscultation, Normal Respiratory Effort Cardiovascular: Regular Rate, Regular Rhythm GI/Abdominal Exam: Soft, Non-Tender Genitourinary: Normal external exam Extremities: Normal Inspection Skin: Warm, Dry, Intact - Patient Data Lab Results Last 24 hrs: Laboratory Results - last 24 hr 05/20/21 Range/Units 07:50 WBC 10.84 H (3.98-10.04) K/mm3 RBC 4.49 (3.98-5.22) M/mm3 Hgb 13.6 (11.2-15.7) gm/dl Hct 41.3 (34.1-44.9) % MCV 92.0 (79.4-94.8) fl MCH 30.3 (25.6-32.2) pg MCHC 32.9 (32.2-35.5) g/dl RDW Std Deviation 47.8 H (36.4-46.3) fL Plt Count 193 (182-369) K/mm3 MPV 11.3 (9.4-12.3) fl Neut % (Auto) 63.2 (34.0-71.1) % Lymph % (Auto) 24.4 (19.3-51.7) % [place] % (Auto) 11.3 (4.7-12.5) % Eos % (Auto) 0.7 (0.7-5.8) Baso % (Auto) 0.1 (0.1-1.2) % Neut # (Auto) 6.86 H (1.56-6.13) K/mm3 Lymph # (Auto) 2.64 (1.18-3.74) K/mm3 [place] # (Auto) 1.22 H (0.24-0.36) K/mm3 Eos # (Auto) 0.08 (0.04-0.36) K/mm3 Baso # (Auto) 0.01 (0.01-0.08) K/mm3 Result Diagrams: 05/20/21 07:50 - Problem List (1) 39 weeks gestation of SNOMED Code(s): 34517982 ICD Code: Z3A.39 - 39 WEEKS GESTATION OF Status: Acute Current Visit: Yes Problem List Initiated/Reviewed/Updated: Yes Orders Last 24hrs: Active Orders 24 hr Category Date Time Status Patient Status [ADT] Routine ADT 05/20/21 07:28 Active Activity as Tolerated [RC] PFP Care 05/20/21 07:28 Active Communication Order [RC] ASDIRECTED Care 05/20/21 07:28 Active Heart Tones [RC] ASDIRECTED Care 05/20/21 07:31 Active Non Stress Test [RC] PER UNIT ROUTINE Care 05/20/21 07:28 Active Notify Provider [RC] PFP Care 05/20/21 07:28 Active Notify Provider [RC] PRN Care 05/20/21 07:28 Active Peripheral IV Care [RC] . DIRECTED Care 05/20/21 07:31 Active Pump Management, Intrathecal [RC] ASDIRECTED Care 05/20/21 07:31 Active Urinary Catheter Assessment [RC] ASDIRECTED Care 05/20/21 07:27 Active Vital Signs [RC] PER UNIT ROUTINE Care 05/20/21 07:28 Active Regular Diet [DIET] Diet 05/20/21 Breakfast Active CORONAVIRUS COVID-19 YADIRA [MOLEC] Stat Lab 05/20/21 08:30 Received HEP C VIRUS AB [REF] Routine Lab 05/20/21 07:50 Received TYPE AND SCREEN [BBK] Stat Lab 05/20/21 07:50 Received Lactated Ringers [Ringers, Lactated] 1,000 ml Med 05/20/21 07:30 Active IV ASDIRECTED Nalbuphine [Nubain] Med 05/20/21 07:27 Active 10 mg IVPUSH Q2H PRN Oxytocin/Lactated Ringers [Pitocin in LR 10 Units/1,000 Med 05/20/21 07:30 Active ML] 10 unit in 1,000 ml IV .CONTINUOUS Oxytocin/Lactated Ringers [Pitocin in LR 10 Units/1,000 Med 05/20/21 07:30 Active ML] 10 unit in 1,000 ml IV TITRATE Sodium Chloride 0.9% [Saline Flush] Med 05/20/21 07:27 Active 10 ml FLUSH ASDIRECTED PRN Electronic Heart Tones Ext w TOCO [WOMSER] Oth 05/20/21 07:28 Ordered Routine Electronic Heart Tones Internal [WOMSER] Per Unit Oth 05/20/21 07:28 Ordered Routine Peripheral IV Insertion Adult [OM.PC] Routine Oth 05/20/21 07:28 Ordered Resuscitation Status Routine Resus Stat 05/20/21 07:27 Ordered Medication Orders Oxytocin/Lactated Ringer's (Pitocin In Lr 10 Units/1,000 Ml) 10 unit in 1,000 mls @ 12 mls/hr IV TITRATE CELIA; Protocol Oxytocin/Lactated Ringer's (Pitocin In Lr 10 Units/1,000 Ml) 10 unit in 1,000 mls @ 500 mls/hr IV .CONTINUOUS CELIA Lactated Ringer's (Ringers, Lactated) 1,000 mls @ 100 mls/hr IV ASDIRECTED CELIA Nalbuphine HCl (Nalbuphine 10 Mg/1 Ml Vial) 10 mg IVPUSH Q2H PRN PRN Reason: Pain Sodium Chloride (Sodium Chloride 0.9% 10 Ml Syringe) 10 ml FLUSH ASDIRECTED PRN PRN Reason: Keep Vein Open Assessment/Plan Comment:: * Labs * GBS negative, no need for antibiotics * AROM and pitocin for IOL * Pain management per patient preference * Anticipate
--- NOTE | 2021-05-20 09:27 | PCM.PREANE ---
Preanesthetic Assessment - Procedure Proposed Procedure: Continuous labor epidural - Anesthesia/Transfusion/Family Hx Anesthesia History: No Prior Anesthesia Transfusion History: No Prior Transfusion(s) - Review of Systems General: No Symptoms Pulmonary: No Symptoms Cardiovascular: No Symptoms Gastrointestinal: No Symptoms Neurological: No Symptoms Other: Reports: Anxiety - Physical Assessment Vital Signs: Last Vital Signs Temp 96.9 F 05/20/21 07:26 Pulse 91 05/20/21 07:26 Resp BP 107/70 05/20/21 07:26 Pulse Ox 99 05/20/21 07:26 Height: 1.6 m Weight: 81.374 kg ASA Class: 2 Mental Status: Alert & Oriented x3 Airway Class: Mallampati = 1 Dentition: Reports: Normal Dentition Thyro-Mental Finger Breadths: 3 Mouth Opening Finger Breadths: 3 ROM/Head Extension: Full Lungs: Clear to Auscultation, Normal Respiratory Effort Cardiovascular: Regular Rate, Regular Rhythm - Lab Values: Laboratory Last Values WBC 10.84 K/mm3 (3.98-10.04) H 05/20/21 07:50 RBC 4.49 M/mm3 (3.98-5.22) 05/20/21 07:50 Hgb 13.6 gm/dl (11.2-15.7) 05/20/21 07:50 Hct 41.3 % (34.1-44.9) 05/20/21 07:50 MCV 92.0 fl (79.4-94.8) 05/20/21 07:50 MCH 30.3 pg (25.6-32.2) 05/20/21 07:50 MCHC 32.9 g/dl (32.2-35.5) 05/20/21 07:50 RDW Std Deviation 47.8 fL (36.4-46.3) H 05/20/21 07:50 Plt Count 193 K/mm3 (182-369) 05/20/21 07:50 MPV 11.3 fl (9.4-12.3) 05/20/21 07:50 Neut % (Auto) 63.2 % (34.0-71.1) 05/20/21 07:50 Lymph % (Auto) 24.4 % (19.3-51.7) 05/20/21 07:50 [place] % (Auto) 11.3 % (4.7-12.5) 05/20/21 07:50 Eos % (Auto) 0.7 (0.7-5.8) 05/20/21 07:50 Baso % (Auto) 0.1 % (0.1-1.2) 05/20/21 07:50 Neut # (Auto) 6.86 K/mm3 (1.56-6.13) H 05/20/21 07:50 Lymph # (Auto) 2.64 K/mm3 (1.18-3.74) 05/20/21 07:50 [place] # (Auto) 1.22 K/mm3 (0.24-0.36) H 05/20/21 07:50 Eos # (Auto) 0.08 K/mm3 (0.04-0.36) 05/20/21 07:50 Baso # (Auto) 0.01 K/mm3 (0.01-0.08) 05/20/21 07:50 Blood Type A POSITIVE 05/20/21 07:50 - Allergies Allergies/Adverse Reactions: Allergies Allergy/AdvReac Type Severity Reaction Status Date / Time latex Allergy Rash Verified 04/14/21 10:22 azithromycin [From Zithromax] AdvReac Vomiting Verified 04/14/21 10:22 pneumococcal vaccine AdvReac Pain Verified 04/14/21 10:22 - Acknowledgements Anesthesia Type Planned: Epidural Pt an Appropriate Candidate for the Planned Anesthesia: Yes Alternatives and Risks of Anesthesia Discussed w Pt/Guardian: Yes Pt/Guardian Understands and Agrees with Anesthesia Plan: Yes PreAnesthesia Questionnaire Respiratory History: Reports: Asthma Gastrointestinal History: Reports: Irritable Bowel Syndrome 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: , 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 , Other (See Below) Other OB/BYN History: ruptured ovarian cyst Musculoskeletal History: Reports: Fracture Psychiatric History: Reports: Anxiety Dermatologic History: Reports: Other (See Below) Other Dermatologic History: Acne - Infectious Disease History Infectious Disease History: Reports: Mononucleosis (11 years old) - Past Surgical History HEENT Surgical History: Reports: Adenoidectomy, Myringotomy w Tube(s), Tonsillectomy GI Surgical History: Reports: Cholecystectomy - SUBSTANCE USE Tobacco Use Status *Q: Never Tobacco User Second Hand Smoke Exposure: No Recreational Drug Use History: No - HOME MEDS Home Medications: Home Meds Albuterol Sulfate [Albuterol Sulfate Hfa] 18 gm IH Q4HR 06/06/19 [History] Doxylamine Succinate [Unisom] 25 mg PO DAILY 06/06/19 [History] Famotidine [Pepcid] 10 mg PO BID 06/06/19 [History] Ondansetron [Zofran] 8 mg PO Q8H PRN 06/06/19 [History] No122/Iron/Folic Acid [ Multi Tablet] 1 each PO DAILY 06/06/19 [History] Sertraline HCl [Zoloft] 100 mg PO DAILY 06/06/19 [History] - CURRENT (IN HOUSE) MEDS Current Meds: Current Medications Oxytocin/Lactated Ringer's (Pitocin In Lr 10 Units/1,000 Ml) 10 unit in 1,000 mls @ 12 mls/hr IV TITRATE CELIA; Protocol Oxytocin/Lactated Ringer's (Pitocin In Lr 10 Units/1,000 Ml) 10 unit in 1,000 mls @ 500 mls/hr IV .CONTINUOUS CELIA Lactated Ringer's (Ringers, Lactated) 1,000 mls @ 100 mls/hr IV ASDIRECTED CELIA Nalbuphine HCl (Nalbuphine 10 Mg/1 Ml Vial) 10 mg IVPUSH Q2H PRN PRN Reason: Pain Sodium Chloride (Sodium Chloride 0.9% 10 Ml Syringe) 10 ml FLUSH ASDIRECTED PRN PRN Reason: Keep Vein Open
[2021-05-20] MEDS ORDERED: diphenhydrAMINE 50 MG/ML SDV IVPUSH PRN (09:36)
[2021-05-20] MEDS ORDERED: Bupivacaine/fentaNYL/NS 100 ML Bag EPIDUR PRN (09:36)
[2021-05-20] MEDS ORDERED: ePHEDrine 50 MG/ML SDV IVPUSH PRN (09:36)
[2021-05-20] MEDS ORDERED: fentaNYL 100 MCG/2 ML SDV EPIDUR PRN (09:36)
[2021-05-20] MEDS: Lactated Ringers 1,000 ML IV SCH ×2 (10:29→13:47)
[2021-05-20] MEDS ORDERED: Lidocaine 1.5% with EPINEPHrine 1:200,000 5 ML Amp ONE (12:00)
--- NOTE | 2021-05-20 17:49 | PCM.DEL ---
L & D Note - General Info Date of Service: 05/20/21 - Delivery Note Labor: Induced by ARM, Induced by Oxytocin Cervical Ripening Method: Oxytocin Delivery Outcome: Livebirth Delivery Method: Spontaneous Vaginal Delivery-Single Infant Delivery Mode: Spontaneous Presentation: Left Occiput Anterior (BEREKET) Nuchal Cord: Present, Reduced Anesthesia Type: Epidural Amniotic Fluid Description: Clear Episiotomy Type: None Laceration: 2nd Degree Suture type: Vicryl Suture size: 2-0 Placenta: Intact, Spontaneous Cord: 3 Vessels Estimated Blood Loss: 100 Resuscitation Needed: Yes : Bulb Syringe, Stimulated, Warmed, [place] Used, Warmer Used Delivery Comments (Free Text/Narrative):: The patient was pushing in the dorsal lithotomy position. Sterile vaginal exam complete/complete/+3 station. head in BEREKET presentation. Maternal pushing effort was good and the pelvis was felt to be adequate for an instrument assisted delivery. Given deep, recurrent variables the decision was made to proceed with vacuum assisted vaginal delivery. The mushroom cup was placed without difficulty with care to avoid the vaginal side jeffers at 0721. Subsequent vacuum assisted vaginal delivery with pushing over 2 contractions. Total pressure applied 550 mm Hg. Total pop offs: 0. Suction was removed following delivery of the head. No nuchal cord present and was reduced without difficulty. The remainder of the delivered without difficulty. The umbilical cord was clamped and cut and the was taken to the warmer. Cord segment obtained for cord gas. Cord blood obtained. Inspection of the perineum following delivery with a 2nd degree laceration repaired with a 2-0 Vicryl in the typical fashion. Vacuum Extractor Progress Note - Alternative Labor Strategies Considered Alternative Labor Strategies Considered:: Reports: Yes Strategies Considered:: Reports: Contraction Intensity Adequate, Position Changes Used to Facilitate Rotation & Descent Indications Considered:: Reports: Yes Indications:: Reports: Suspicion of Immediate or Potential Compromise Time Out:: Reports: Yes - Patient Prepared Patient Prepared:: Reports: Yes Informed Consent:: Reports: Verbal Risks: Reports: Yes Risks Include:: Reports: Laceration, Shoulder Dystocia, Maternal Injury Anesthesia/Analgesia Adequate:: Reports: Yes - Probability of Success High Probability of Success:: Reports: Yes Weight Estimated:: Reports: AGA Patient Diabetic:: Reports: No Pelvis Adequate:: Reports: Yes Position:: BEREKET Asynclitic:: Reports: No Station:: +3 - Application Time Maximum Application Time & Number of Pop-Offs Predetermined:: Reports: Yes Maximum Pressure Maintained in [place] (cm Hg):: 550 Total Application Time (min): *max=20min: 2 Number of Times Cup Disengaged:: 0 Type of Vacuum Used:: Reports: Cup: Mushroom type Vacuum Extraction: Successful - Exit Strategy Exit strategy available:: Reports: Yes and resuscitation teams readily available:: Reports: Yes - General Info Date of Service: 05/20/21 - Patient Data Vitals - Most Recent: Last Vital Signs Temp 36.1 C 05/20/21 07:26 Pulse 91 05/20/21 07:26 Resp BP 107/70 05/20/21 07:26 Pulse Ox 99 05/20/21 07:26 Weight - Most Recent: 81.374 kg - Exam Urinary Catheter Total Time: 0Days 3Hours - Problem List & Annotations (1) 39 weeks gestation of SNOMED Code(s): 64264289 Code(s): Z3A.39 - 39 WEEKS GESTATION OF Status: Acute Current Visit: Yes (2) Vacuum-assisted delivery, delivered, current hospitalization SNOMED Code(s): 794826373, 160443779 Code(s): O82 - ENCOUNTER FOR DELIVERY WITHOUT INDICATION Status: Acute Current Visit: Yes - Problem List Review Problem List Initiated/Reviewed/Updated: Yes - My Orders Last 24 Hours: My Active Orders 05/20/21 Breakfast Regular Diet [DIET] 05/20/21 07:27 Urinary Catheter Assessment [RC] ASDIRECTED Nalbuphine [Nubain] 10 mg IVPUSH Q2H PRN Sodium Chloride 0.9% [Saline Flush] 10 ml FLUSH ASDIRECTED PRN Resuscitation Status Routine 05/20/21 07:28 Patient Status [ADT] Routine Activity as Tolerated [RC] PFP Communication Order [RC] ASDIRECTED Non Stress Test [RC] PER UNIT ROUTINE Notify Provider [RC] PFP Notify Provider [RC] PRN Vital Signs [RC] PER UNIT ROUTINE Electronic Heart Tones Ext w TOCO [WOMSER] Routine Electronic Heart Tones Internal [WOMSER] Per Unit Routine Peripheral IV Insertion Adult [OM.PC] Routine 05/20/21 07:30 Lactated Ringers [Ringers, Lactated] 1,000 ml IV ASDIRECTED Oxytocin/Lactated Ringers [Pitocin in LR 10 Units/1,000 ML] 10 unit in 1,000 ml IV .CONTINUOUS Oxytocin/Lactated Ringers [Pitocin in LR 10 Units/1,000 ML] 10 unit in 1,000 ml IV TITRATE 05/20/21 07:31 Heart Tones [RC] ASDIRECTED Peripheral IV Care [RC] . DIRECTED Pump Management, Intrathecal [RC] ASDIRECTED 05/20/21 07:50 TYPE AND SCREEN [BBK] Stat 05/20/21 11:26 HEP C VIRUS AB [REF] Routine - Assessment Assessment:: PPD#0 - Plan Plan:: * Routine cares * Breast feeding * Continue home Prozac * Discharge home in 1-2 days
[2021-05-20] MEDS ORDERED: Witch Hazel Medicated Pads 40/Jar TOP PRN (18:09)
[2021-05-20] MEDS ORDERED: Benzocaine/Menthol 20%-0.5% Spray 56 GM Canister TOP PRN (18:09)
[2021-05-20] MEDS: Ibuprofen 600 MG Tab PO PRN (19:49)
[2021-05-20] MEDS: Acetaminophen 325 MG Tab PO PRN (22:03)
[2021-05-21] MEDS: Ibuprofen 600 MG Tab PO PRN ×2 (02:36→12:51)
[2021-05-21] MEDS: Acetaminophen 325 MG Tab PO PRN ×2 (08:04→15:03)
[2021-05-21] MEDS ORDERED: Benzocaine/Cetylpyridinium/Menthol Lozenge MUCMEM PRN (08:07)
[2021-05-21] MEDS ORDERED: Sodium Chloride 0.65% Nasal Spray 45 ML Bottle NAS PRN (08:07)
--- NOTE | 2021-05-21 08:23 | PCM.DCSUM1 ---
Discharge Summary - Discharge Data Discharge Date: 05/21/21 Discharge Disposition: Home, Self-Care 01 Condition: Good - Referral to Home Health Primary Care Physician: Nevaeh Garrison MD - Discharge Diagnosis/Problem(s) (1) 39 weeks gestation of SNOMED Code(s): 40577655 ICD Code: Z3A.39 - 39 WEEKS GESTATION OF Status: Acute Current Visit: Yes (2) Vacuum-assisted delivery, delivered, current hospitalization SNOMED Code(s): 014934360, 957881694 ICD Code: O82 - ENCOUNTER FOR DELIVERY WITHOUT INDICATION Status: Acute Current Visit: Yes - Patient Summary/Data Complications: None Consults: None Recommended Follow-up Testing/Procedures: Follow up in 3 weeks for check Hospital Course: 25 y/o at 39 1/7 wks who presented for IOL. Done with pitocin and AROM. Progressed well to complete and pushing. With pushing began to have recurrent, deep decelerations into the 80-90's. Underwent an uncomplicated VAVD for this finding. See delivery note. did well and was discharged home on PPD#1 - Patient Instructions Diet: Regular Diet as Tolerated Activity: As Tolerated Activity, Other: Pelvic rest for 6 weeks Driving: May Drive Today Showering/Bathing: May Shower Showering/Bathing, Other: May Bathe Notify Provider of: Fever, Increased Pain, Swelling and Redness, Drainage, Nausea and/or Vomiting - Discharge Plan *PRESCRIPTION DRUG MONITORING PROGRAM REVIEWED*: No *COPY OF PRESCRIPTION DRUG MONITORING REPORT IN PATIENT AMY: No Home Medications: Home Meds Albuterol Sulfate [Albuterol Sulfate Hfa] 18 gm IH Q4HR 06/06/19 [History] No122/Iron/Folic Acid [ Multi Tablet] 1 each PO DAILY 06/06/19 [History] Ibuprofen [Motrin] 600 mg PO Q6H PRN tablet 05/20/21 [Rx] FLUoxetine HCl [Prozac] 10 mg PO DAILY 05/21/21 [History] Referrals: Nevaeh Garrison MD [Primary Care Provider] - (3 weeks for check ) - Discharge Summary/Plan Comment DC Time >30 min.: No Total # of Minutes for Discharge Time: 15 - Patient Data Vitals - Most Recent: Last Vital Signs Temp 37.2 C 05/21/21 03:16 Pulse 67 05/21/21 03:16 Resp 15 05/21/21 03:16 BP 116/77 05/21/21 03:16 Pulse Ox 98 05/21/21 03:16 Weight - Most Recent: 81.374 kg I&O - Last 24 hours: Intake & Output 05/20/21 05/21/21 05/21/21 22:59 06:59 14:59 Intake Total 3200 Output Total 600 Balance 2600 Lab Results - Last 24 hrs: Laboratory Results - last 24 hr 05/20/21 05/20/21 05/20/21 Range/Units 07:50 07:50 08:30 WBC 10.84 H (3.98-10.04) K/mm3 RBC 4.49 (3.98-5.22) M/mm3 Hgb 13.6 (11.2-15.7) gm/dl Hct 41.3 (34.1-44.9) % MCV 92.0 (79.4-94.8) fl MCH 30.3 (25.6-32.2) pg MCHC 32.9 (32.2-35.5) g/dl RDW Std Deviation 47.8 H (36.4-46.3) fL Plt Count 193 (182-369) K/mm3 MPV 11.3 (9.4-12.3) fl Neut % (Auto) 63.2 (34.0-71.1) % Lymph % (Auto) 24.4 (19.3-51.7) % [place] % (Auto) 11.3 (4.7-12.5) % Eos % (Auto) 0.7 (0.7-5.8) Baso % (Auto) 0.1 (0.1-1.2) % Neut # (Auto) 6.86 H (1.56-6.13) K/mm3 Lymph # (Auto) 2.64 (1.18-3.74) K/mm3 [place] # (Auto) 1.22 H (0.24-0.36) K/mm3 Eos # (Auto) 0.08 (0.04-0.36) K/mm3 Baso # (Auto) 0.01 (0.01-0.08) K/mm3 SARS-CoV-2 RNA (YADIRA) Negative (NEGATIVE) Blood Type A POSITIVE Med Orders - Current: Current Medications Acetaminophen (Acetaminophen 325 Mg Tab) 650 mg PO Q4H PRN PRN Reason: mild pain or fever Last Admin: 05/21/21 08:04 Dose: 650 mg Documented by: Benzocaine/Menthol (Benzocaine/Menthol 20%-0.5% [place] 56 Gm Canister) 0 gm TOP ASDIRECTED PRN PRN Reason: Perineal Comfort Measure Last Admin: 05/20/21 19:49 Dose: 1 canister Documented by: Benzocaine/Menthol (Benzocaine/Cetylpyridinium/Menthol Lozenge) 1 lozenge MUCMEM Q2H PRN PRN Reason: Sore Throat Ibuprofen (Ibuprofen 600 Mg Tab) 600 mg PO Q6H PRN PRN Reason: Mild pain or fever Last Admin: 05/21/21 02:36 Dose: 600 mg Documented by: Sodium Chloride (Sodium Chloride 0.65% Nasal [place] 45 Ml Bottle) 0 ml HAYDEN Q6H PRN PRN Reason: Congestion Witch Eri (Witch Eri Medicated Pads 40/Jar) 1 pad TOP ASDIRECTED PRN PRN Reason: Perineal Comfort Measure Last Admin: 05/20/21 19:50 Dose: 1 container Documented by: Discontinued Medications Diphenhydramine HCl (Diphenhydramine 50 Mg/Ml Sdv) 25 mg IVPUSH Q6H PRN PRN Reason: pruritis Ephedrine Sulfate (Ephedrine 50 Mg/Ml Sdv) 5 mg IVPUSH ASDIRECTED PRN PRN Reason: Hypotension Fentanyl (Fentanyl 100 Mcg/2 Ml Sdv) 100 mcg EPIDUR Q3H PRN PRN Reason: Pain Last Admin: 05/20/21 13:03 Dose: 100 mcg Documented by: Fentanyl/Bupivacaine HCl (Bupivacaine/Fentanyl/Ns 100 Ml Bag) 100 ml EPIDUR ASDIRECTED PRN PRN Reason: Pain Last Admin: 05/20/21 13:04 Dose: 100 ml Documented by: Oxytocin/Lactated Ringer's (Pitocin In Lr 10 Units/1,000 Ml) 10 unit in 1,000 mls @ 12 mls/hr IV TITRATE CELIA; Protocol Last Titration: 05/20/21 16:49 Dose: 4 munits/min, 24 mls/hr Documented by: Oxytocin/Lactated Ringer's (Pitocin In Lr 10 Units/1,000 Ml) 10 unit in 1,000 mls @ 500 mls/hr IV .CONTINUOUS CELIA Lactated Ringer's (Ringers, Lactated) 1,000 mls @ 100 mls/hr IV ASDIRECTED CELIA Last Admin: 05/20/21 13:47 Dose: 100 mls/hr Documented by: Nalbuphine HCl (Nalbuphine 10 Mg/1 Ml Vial) 10 mg IVPUSH Q2H PRN PRN Reason: Pain Prenat Multivit/[place]/Iron/Folic Ac ( Multivitamin With Calcium/Folic Acid/Iron Tab) 1 each PO DAILY CELIA Sertraline HCl (Sertraline 50 Mg Tab) 100 mg PO DAILY CELIA Sodium Chloride (Sodium Chloride 0.9% 10 Ml Syringe) 10 ml FLUSH ASDIRECTED PRN PRN Reason: Keep Vein Open
--- NOTE | 2021-05-21 08:23 | PCM.PNPP ---
- General Info Date of Service: 05/21/21 Functional Status: Reports: Pain Controlled, Tolerating Diet, Ambulating, Urinating - Review of Systems General: Reports: No Symptoms Pulmonary: Reports: No Symptoms Cardiovascular: Reports: No Symptoms Gastrointestinal: Reports: No Symptoms Genitourinary: Reports: No Symptoms Musculoskeletal: Reports: No Symptoms Neurological: Reports: No Symptoms - Patient Data Vital Signs - Most Recent: Last Vital Signs Temp 37.2 C 05/21/21 03:16 Pulse 67 05/21/21 03:16 Resp 15 05/21/21 03:16 BP 116/77 05/21/21 03:16 Pulse Ox 98 05/21/21 03:16 Weight - Most Recent: 81.374 kg I&O - Last 24 Hours: Intake & Output 05/20/21 05/21/21 05/21/21 22:59 06:59 14:59 Intake Total 3200 Output Total 600 Balance 2600 Lab Results - Last 24 Hours: Laboratory Results - last 24 hr 05/20/21 05/20/21 05/20/21 Range/Units 07:50 07:50 08:30 WBC 10.84 H (3.98-10.04) K/mm3 RBC 4.49 (3.98-5.22) M/mm3 Hgb 13.6 (11.2-15.7) gm/dl Hct 41.3 (34.1-44.9) % MCV 92.0 (79.4-94.8) fl MCH 30.3 (25.6-32.2) pg MCHC 32.9 (32.2-35.5) g/dl RDW Std Deviation 47.8 H (36.4-46.3) fL Plt Count 193 (182-369) K/mm3 MPV 11.3 (9.4-12.3) fl Neut % (Auto) 63.2 (34.0-71.1) % Lymph % (Auto) 24.4 (19.3-51.7) % [place] % (Auto) 11.3 (4.7-12.5) % Eos % (Auto) 0.7 (0.7-5.8) Baso % (Auto) 0.1 (0.1-1.2) % Neut # (Auto) 6.86 H (1.56-6.13) K/mm3 Lymph # (Auto) 2.64 (1.18-3.74) K/mm3 [place] # (Auto) 1.22 H (0.24-0.36) K/mm3 Eos # (Auto) 0.08 (0.04-0.36) K/mm3 Baso # (Auto) 0.01 (0.01-0.08) K/mm3 SARS-CoV-2 RNA (YADIRA) Negative (NEGATIVE) Blood Type A POSITIVE Med Orders - Current: Current Medications Acetaminophen (Acetaminophen 325 Mg Tab) 650 mg PO Q4H PRN PRN Reason: mild pain or fever Last Admin: 05/21/21 08:04 Dose: 650 mg Documented by: Benzocaine/Menthol (Benzocaine/Menthol 20%-0.5% [place] 56 Gm Canister) 0 gm TOP ASDIRECTED PRN PRN Reason: Perineal Comfort Measure Last Admin: 05/20/21 19:49 Dose: 1 canister Documented by: Benzocaine/Menthol (Benzocaine/Cetylpyridinium/Menthol Lozenge) 1 lozenge MUCMEM Q2H PRN PRN Reason: Sore Throat Ibuprofen (Ibuprofen 600 Mg Tab) 600 mg PO Q6H PRN PRN Reason: Mild pain or fever Last Admin: 05/21/21 02:36 Dose: 600 mg Documented by: Sodium Chloride (Sodium Chloride 0.65% Nasal [place] 45 Ml Bottle) 0 ml HAYDEN Q6H PRN PRN Reason: Congestion Witch Eri (Witch Eri Medicated Pads 40/Jar) 1 pad TOP ASDIRECTED PRN PRN Reason: Perineal Comfort Measure Last Admin: 05/20/21 19:50 Dose: 1 container Documented by: Discontinued Medications Diphenhydramine HCl (Diphenhydramine 50 Mg/Ml Sdv) 25 mg IVPUSH Q6H PRN PRN Reason: pruritis Ephedrine Sulfate (Ephedrine 50 Mg/Ml Sdv) 5 mg IVPUSH ASDIRECTED PRN PRN Reason: Hypotension Fentanyl (Fentanyl 100 Mcg/2 Ml Sdv) 100 mcg EPIDUR Q3H PRN PRN Reason: Pain Last Admin: 05/20/21 13:03 Dose: 100 mcg Documented by: Fentanyl/Bupivacaine HCl (Bupivacaine/Fentanyl/Ns 100 Ml Bag) 100 ml EPIDUR ASDIRECTED PRN PRN Reason: Pain Last Admin: 05/20/21 13:04 Dose: 100 ml Documented by: Oxytocin/Lactated Ringer's (Pitocin In Lr 10 Units/1,000 Ml) 10 unit in 1,000 mls @ 12 mls/hr IV TITRATE CELIA; Protocol Last Titration: 05/20/21 16:49 Dose: 4 munits/min, 24 mls/hr Documented by: Oxytocin/Lactated Ringer's (Pitocin In Lr 10 Units/1,000 Ml) 10 unit in 1,000 mls @ 500 mls/hr IV .CONTINUOUS CELIA Lactated Ringer's (Ringers, Lactated) 1,000 mls @ 100 mls/hr IV ASDIRECTED CELIA Last Admin: 05/20/21 13:47 Dose: 100 mls/hr Documented by: Nalbuphine HCl (Nalbuphine 10 Mg/1 Ml Vial) 10 mg IVPUSH Q2H PRN PRN Reason: Pain Prenat Multivit/[place]/Iron/Folic Ac ( Multivitamin With Calcium/Folic Acid/Iron Tab) 1 each PO DAILY CELIA Sertraline HCl (Sertraline 50 Mg Tab) 100 mg PO DAILY CELIA Sodium Chloride (Sodium Chloride 0.9% 10 Ml Syringe) 10 ml FLUSH ASDIRECTED PRN PRN Reason: Keep Vein Open - Interaction Disposition, : in Room with Family Interaction: Holding Infant Feeding: Attempted ; Nursed Fair/Poor Support Person: - Recovery Exam Fundal Tone: Firm Fundal Level: At Umbilicus Fundal Placement: Midline Lochia Amount: Scant Lochia Color: Rubra/Red Perineum Description: Edematous, Other (see below) Other Perinuem Description: 2nd degree with repair Episiotomy/Laceration: Approximated Bladder Status: Voiding Urinary Elimination: Voided - Exam General: Alert, Oriented, Cooperative GI/Abdominal Exam: Soft, Non-Tender Extremities: Normal Inspection - Problem List & Annotations (1) 39 weeks gestation of SNOMED Code(s): 59138483 Code(s): Z3A.39 - 39 WEEKS GESTATION OF Status: Acute Current Visit: Yes (2) Vacuum-assisted delivery, delivered, current hospitalization SNOMED Code(s): 689831887, 393676395 Code(s): O82 - ENCOUNTER FOR DELIVERY WITHOUT INDICATION Status: Acute Current Visit: Yes - Problem List Review Problem List Initiated/Reviewed/Updated: Yes - My Orders Last 24 Hours: My Active Orders 05/20/21 07:27 Resuscitation Status Routine 05/20/21 07:50 TYPE AND SCREEN [BBK] Stat 05/20/21 11:26 HEP C VIRUS AB [REF] Routine 05/20/21 Dinner Regular Diet [DIET] 05/20/21 18:09 Acetaminophen [TylenoL] 650 mg PO Q4H PRN Benzocaine/Menthol [Dermoplast Pain Relief [place]] See Dose Instructions TOP ASDIRECTED PRN Ibuprofen [Motrin] 600 mg PO Q6H PRN witch Eri [[place]] 1 pad TOP ASDIRECTED PRN Heat Therapy [OM.PC] PRN 05/20/21 18:09 Activity as Tolerated [RC] PER UNIT ROUTINE Vital Signs [RC] 03,,, Assess Lochia [WOMSER] Per Unit Routine Assess Uterine Involution [WOMSER] Per Unit Routine Breast Pump [WOMSER] Per Unit Routine Ice Therapy [OM.PC] Per Unit Routine Perineal Care [OM.PC] Per Unit Routine Peripheral IV Discontinue [OM.PC] Routine Sitz Bath [OM.PC] Per Unit Routine 05/21/21 08:07 Benzocaine/Cetylpyrd/Menthol [Cepacol Sore Throat] 1 lozenge MUCMEM Q2H PRN Sodium Chloride 0.65% [Reasnor Nasal [place]] 0 ml HAYDEN Q6H PRN 05/21/21 08:21 Ready for Discharge [RC] PER UNIT ROUTINE 05/21/21 18:09 Heat Therapy [OM.PC] PRN - Assessment Assessment:: PPD#1 - Plan Plan:: * Routine cares * Breast feeding * Continue home Prozac * Discharge home today
[2021-05-21] MEDS ORDERED: Prenatal Multivitamin with Calcium/Folic Acid/Iron Tab PO SCH (09:00)
[2021-05-21] MEDS ORDERED: Sertraline 50 MG Tab PO SCH (09:00)
[2021-05-21 16:29] VITALS: BP 103/63; PULSE 75
== END 2021-05-21 18:45 | disposition home or self-care (01) | DRG 560 ==
LOC: JD.OB 06:56 → OBSVTOIN 17:23 → JD.OB 17:24
PROVIDERS: ADMIT Obstetrics & Gynecology; ATTEND Obstetrics & Gynecology
PROC: 10D07Z6 Extraction of Products of Conception, Vacuum, Via Natural or Artificial Opening (ICD-10-PCS; principal; 2021-05-20)
PROC: 10907ZC Drainage of Amniotic Fluid, Therapeutic from Products of Conception, Via Natural or Artificial Opening (ICD-10-PCS; 2021-05-20)
PROC: 3E033VJ Introduction of Other Hormone into Peripheral Vein, Percutaneous Approach (ICD-10-PCS; 2021-05-20)
PROC: 3E0R3BZ Introduction of Anesthetic Agent into Spinal Canal, Percutaneous Approach (ICD-10-PCS; 2021-05-20)
PROC: 0KQM0ZZ Repair Perineum Muscle, Open Approach (ICD-10-PCS; 2021-05-20)
DX: O99.344 Other mental disorders complicating childbirth (principal); O76 Abnormality in fetal heart rate and rhythm complicating labor and delivery; Z3A.39 39 weeks gestation of pregnancy; Z37.0 Single live birth; Z91.040 Latex allergy status; Z88.1 Allergy status to other antibiotic agents; O99.52 Diseases of the respiratory system complicating childbirth; F41.9 Anxiety disorder, unspecified; J45.909 Unspecified asthma, uncomplicated; O69.81X0 Labor and delivery complicated by cord around neck, without compression, not applicable or unspecified; O70.1 Second degree perineal laceration during delivery; Z20.822 Contact with and (suspected) exposure to COVID-19
CPT/HCPCS: 01967; 36415; 51702; 59025; 59409; 85025; 86592; 86803; 86850; 86900; 86901; A9270-GY; J2590; J3010; J7120; U0002

== ENCOUNTER 2021-10-22 18:28 | Emergency (ER) | payer BC ==
[2021-10-22] MEDS ORDERED: Ondansetron 4 MG/2 ML SDV IVPUSH STA (19:04)
[2021-10-22] MEDS ORDERED: HYDROmorphone 1 MG/ML Syringe IVPUSH STA (19:04)
[2021-10-22] MEDS ORDERED: LORazepam 2 MG/ML SDV IVPUSH STA (19:06)
[2021-10-22] MEDS ORDERED: Sodium Chloride 0.9% 1,000 ML IV SCH (19:15)
[2021-10-22 20:18] LABS: CORONAVIRUS COVID-19 NAA NEGATIVE (NEGATIVE)
[2021-10-22] MEDS ORDERED: Sodium Chloride 0.9% 10 ML SDV FLUSH ONE (21:04)
[2021-10-22] MEDS ORDERED: Iopamidol 612 MG/ML 100 ML Bottle IVPUSH ONE (21:04)
[2021-10-22] MEDS ORDERED: Loperamide 2 MG Cap PO STA (21:52)
[2021-10-22 22:58] VITALS: BP 110/76; PULSE 87
== END 2021-10-22 22:56 | disposition home or self-care (01) ==
LOC: JD.ED 18:28
DX: K52.9 Noninfective gastroenteritis and colitis, unspecified (principal); R79.89 Other specified abnormal findings of blood chemistry; Z91.040 Latex allergy status; Z88.1 Allergy status to other antibiotic agents; Z88.7 Allergy status to serum and vaccine; Z20.822 Contact with and (suspected) exposure to COVID-19
CPT/HCPCS: 0240U; 36415; 74177; 80053; 83690; 85007; 85027; 96374; 96375; 99284; A9270; J1170; J2060; J2405; J7030; Q9967